=== PATIENT | female | born 1990 | race Caucasian/White ===

== ENCOUNTER 2016-07-26 08:55 | Inpatient (IN) ==
[2016-07-26] MEDS ORDERED: PEPCID PO ONE (08:58)
[2016-07-26] MEDS ORDERED: KEFZOL 1 GM/D5W 50 ML IV PRN (08:58)
[2016-07-26] MEDS ORDERED: REGLAN PO ONE (08:58)
[2016-07-26] MEDS ORDERED: BICITRA PO ONE (09:15)
[2016-07-26] MEDS ORDERED: PEPCID ONE (09:21)
[2016-07-26] MEDS ORDERED: SODIUM CHLORIDE 0.9% 10 ML ONE (09:21)
[2016-07-26] MEDS: LR 1,000 ML IV SCH ×2 (09:39→10:23)
[2016-07-26] MEDS ORDERED: BENADRYL ONE (09:43)
[2016-07-26] MEDS ORDERED: FENTANYL ONE (09:44)
[2016-07-26] MEDS ORDERED: PITOCIN ONE (09:44)
[2016-07-26] MEDS ORDERED: DURAMORPH ONE (09:45)
[2016-07-26] MEDS ORDERED: NS 250 ML ONE (09:46)
[2016-07-26] MEDS ORDERED: LR 1,000 ML ONE (09:46)
[2016-07-26] MEDS ORDERED: PITOCIN 20 UNITS/LR 1,000 ML ONE (09:46)
[2016-07-26] MEDS ORDERED: METHERGINE ONE (09:47)
[2016-07-26] MEDS ORDERED: HEMABATE ONE (09:47)
[2016-07-26 10:01] LABS: MANUAL DIFF NEEDED? NO
[2016-07-26 10:10] LABS: BASO% 0.2 % (0.0-0.8); EOS# 0.08 X1000 (0.0-0.7); EOS% 0.8 % (0.0-10.0); HEMATOCRIT 36.8 % (37.0-47.0); HEMOGLOBIN 12.9 g/dL (12.0-16.0); IMM GRAN# 0.04 X1000 (0.0-0.04); IMM GRAN% 0.4 % (0.0-0.5); LYMPH# 2.08 X1000 (1.2-3.4); LYMPH% 21.8 % (20.5-51.1); MCH 32.5 PG (27-31); MCHC 35.1 g/dL (33-37); MCV 92.7 FL (81-99); MONO# 0.83 X1000 (0.11-0.59); MONO% 8.7 % (1.7-9.3); MPV 12.8 FL (7.4-10.4); NEUT% 68.1 % (42.2-75.2); PLT 151 X1000 (130-400); RBC 3.97 XMIL (4.2-5.4)
[2016-07-26 10:31] LABS: URINE SOURCE VOIDED
[2016-07-26 10:37] LABS: BILIRUBIN URINE NEGATIVE (NEGATIVE); BLOOD URINE NEGATIVE (NEGATIVE); CLARITY SL. CLOUDY (CLEAR); COLOR YELLOW; GLUCOSE URINE NEGATIVE (NEGATIVE); LEUKOCYTES URINE 2+ (NEGATIVE); NITRITE URINE NEGATIVE (NEGATIVE); PROTEIN URINE NEGATIVE (NEGATIVE); UROBILINOGEN URINE NORMAL
--- NOTE | 2016-07-26 13:00 | HISTORY AND PHYSICAL ---
CHIEF COMPLAINT: Intrauterine . HISTORY OF PRESENT ILLNESS: This is a 26-year-old G1 with IUP at 39+ 4 weeks by first trimester ultrasound, EDC 07/29/2016 who presents for primary low transverse section secondary to breech presentation. care has been complicated by Chlamydia this , which was treated and had a negative test of cure. Otherwise care has been uncomplicated. Estimated weight at 37 weeks was 6 pounds 12 ounces with good fluid and again breech presentation. OBSTETRICAL HISTORY: G1 current. 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 Denies abnormal Pap smears. PAST MEDICAL HISTORY: Obesity. PAST SURGICAL HISTORY: Denies. MEDICATIONS: Labetalol, vitamins. ALLERGIES: No known drug allergies. SOCIAL: Denies alcohol, tobacco or illicit drug use. FAMILY HISTORY: Noncontributory. REVIEW OF SYSTEMS: Negative. PHYSICAL EXAMINATION: GENERAL: Well-developed, well-nourished, white female, in no acute distress. HEENT: Pupils equally round, react to light. Extraocular muscle intact. CHEST: Clear to auscultation bilaterally. CV: Regular rate and rhythm. No murmurs, rubs, or gallops. ABDOMEN: Soft, nontender, gravid. EXTREMITIES: No clubbing, cyanosis, or edema. SKIN: No focal lesions. NEURO: No focal deficits. ASSESSMENT AND PLAN: 1. Intrauterine at 39+ 4 weeks. 2. Breech presentation. PLAN: Is for a primary low transverse section. The patient is counseled regarding the risks and benefits of section including risks of bleeding, infection, injury to bowel and bladder. Patient states she agrees with the above stated risks and would like proceed to forward.
[2016-07-26] MEDS ORDERED: HYDROXYZINE IM PRN (13:45)
[2016-07-26] MEDS ORDERED: DEMEROL PO PRN ×2 (13:45)
[2016-07-26] MEDS ORDERED: PHENERGAN IM PRN (13:45)
[2016-07-26] MEDS ORDERED: DEMEROL IM PRN (13:45)
[2016-07-26] MEDS ORDERED: PITOCIN IM PRN (13:45)
[2016-07-26] MEDS ORDERED: CYTOTEC PO PRN (13:45)
[2016-07-26] MEDS ORDERED: PERCOCET-5 PO PRN (13:45)
[2016-07-26] MEDS ORDERED: M-M-R II VACCINE SUBQ ONE (13:45)
[2016-07-26] MEDS ORDERED: HYDROXYZINE PO PRN (13:45)
[2016-07-26] MEDS ORDERED: AMBIEN PO PRN (13:45)
[2016-07-26] MEDS ORDERED: DULCOLAX PR PRN (13:45)
[2016-07-26] MEDS ORDERED: MYLICON PO PRN (13:45)
[2016-07-26] MEDS ORDERED: PITOCIN 20 UNITS/LR 1,000 ML IV ONE (13:45)
[2016-07-26] MEDS ORDERED: BOOSTRIX VACCINE IM ONE (13:45)
[2016-07-26] MEDS ORDERED: NARCAN INJ PRN (14:02)
[2016-07-26] MEDS ORDERED: ZOFRAN IV PRN ×2 (14:02)
[2016-07-26] MEDS ORDERED: NORCO-5 PO PRN (14:02)
[2016-07-26] MEDS ORDERED: BENADRYL IV PRN (14:02)
[2016-07-26] MEDS ORDERED: ZOFRAN ODT PO PRN (14:02)
--- NOTE | 2016-07-26 14:06 | OPERATIVE NOTE ---
PROCEDURE DATE: 07/26/2016 PREOPERATIVE DIAGNOSIS: Intrauterine at 39+ 4 weeks, breech, live. POSTOPERATIVE DIAGNOSIS: Intrauterine at 39+ 4 weeks, breech, live. PROCEDURE: Primary low transverse section. SURGEON: Dr. Claudio. ANESTHESIA: Celso. FINDINGS: Normal uterus, ovaries, and bilateral fallopian tubes. Viable male . Delivery time was 12:56. Apgars 9 and 10. weight 8 pounds 7 ounces. COMPLICATIONS: None apparent. ESTIMATED BLOOD LOSS: 400 mL. SPECIMENS REMOVED: Placenta and cord blood. OPERATIVE COURSE: The patient was identified and consents reviewed. Spinal anesthesia was administered without complications. The patient is placed in a dorsal supine position with a leftward tilt. The abdomen was prepped and draped in normal sterile fashion. A Pfannenstiel skin incision was made and carried through to the underlying layer of fascia. It was extended laterally with Wilson scissors. Inferior portion performed in a similar manner. The superior aspect of the fascial incision was grasped with Luke clamps, elevated, and underlying rectus muscle dissected off with the Wilson scissors. Inferior portion performed in a similar manner. The rectus muscle identified and in the midline. The peritoneum was identified and entered bluntly. Bladder blade was inserted. Low transverse hysterotomy was made. was found to be in breech presentation. Infant delivered atraumatically. Nose and mouth were bulb suctioned. Cord was clamped and cut. was handed off to the waiting nursing staff. The placenta was then manually extracted. The uterus was exteriorized and cleaned of all clots and debris. The hysterotomy was repaired in 2 layers 1st using running locked 0 chromic and a 2nd imbricating layer using 0 chromic was used. The uterus was returned to the intraperitoneal space. The hysterotomy was then re-examined and found to be hemostatic. Peritoneum was reapproximated using 0 chromic. The fascia was then closed with 0 Vicryl in a running fashion. Subcutaneous tissues closed with plain gut suture. The skin was closed with 4-0 Biosyn as well as Dermabond. Patient tolerated the procedure well. She was taken to the recovery room afterwards in stable condition.
[2016-07-26] MEDS: TORADOL IV SCH ×2 (14:31→20:00)
[2016-07-26] MEDS ORDERED: MORPHINE IV ONE (15:26)
[2016-07-26] MEDS: MYLICON PO SCH ×2 (18:18→20:00)
[2016-07-26] MEDS: PITOCIN 10 UNITS/LR 1,000 ML IV SCH (18:25)
[2016-07-26] MEDS: PERICOLACE PO SCH (20:00)
[2016-07-27] MEDS: PITOCIN 10 UNITS/LR 1,000 ML IV SCH (02:04)
[2016-07-27] MEDS: TORADOL IV SCH ×2 (02:16→09:34)
[2016-07-27] MEDS: NORCO-10 PO PRN ×2 (07:50→12:18)
[2016-07-27] MEDS: MYLICON PO SCH ×4 (09:35→20:22)
[2016-07-27] MEDS: PRECARE PO SCH (09:35)
[2016-07-27 10:01] LABS: HEMATOCRIT 34.5 % (37.0-47.0); HEMOGLOBIN 11.6 g/dL (12.0-16.0); MCH 31.7 PG (27-31); MCHC 33.6 g/dL (33-37); MCV 94.3 FL (81-99); MPV 12.4 FL (7.4-10.4); RBC 3.66 XMIL (4.2-5.4)
[2016-07-27] MEDS ORDERED: LR 1,000 ML IV SCH (13:45)
[2016-07-27] MEDS: PERICOLACE PO SCH (20:22)
[2016-07-27] MEDS: PERCOCET-10 PO PRN (22:17)
[2016-07-28] MEDS: PERCOCET-10 PO PRN ×6 (03:50→23:21)
[2016-07-28] MEDS: PRECARE PO SCH (11:04)
[2016-07-28] MEDS: MYLICON PO SCH ×4 (11:05→20:21)
[2016-07-28] MEDS: PERICOLACE PO SCH (20:21)
[2016-07-29] MEDS: PERCOCET-10 PO PRN ×2 (05:15→09:52)
[2016-07-29 07:52] VITALS: BP 128/65
[2016-07-29] MEDS: PRECARE PO SCH (09:52)
[2016-07-29] MEDS: MYLICON PO SCH (09:52)
--- NOTE | 2016-07-30 05:32 | DISCHARGE SUMMARY ---
ADMISSION DATE: 07/26/2016 DISCHARGE DATE: 07/29/2016 ADMITTING DIAGNOSES: 1. Term . 2. Breech presentation. PRINCIPAL DIAGNOSES: 1. Term . 2. Breech presentation. PRINCIPAL PROCEDURE: Primary low-transverse . SUMMARY: Khalida Wang is a 26-year-old, who is at term gestation with a known breech presentation. After discussing the options, and indications, she was admitted to the hospital and Dr. Claudio performed a primary low transverse , delivering a 8 pound 7 ounce male in a breech presentation. There were no intraoperative complications. Postoperatively, the patient has done well. She has remained afebrile and all vital signs have been stable. Admission hemoglobin was 12.9 and hematocrit was 36.8 with discharge hemoglobin being 11.6 and hematocrit 34.5. On the day of discharge, cardiac and pulmonary examinations were normal. Bowel and bladder function was normal. Incision was clean and dry. She is having scant vaginal bleeding. Ms. Wang is being discharged today and will be seen back in the office next week. Routine discharge instructions, activity limitations, and precautions were discussed. She will continue her iron and vitamins and she is given prescriptions for Percocet 10 #30 and Motrin 800 mg, for postoperative pain.
== END 2016-07-29 13:00 | disposition home or self-care (01) | DRG 766 ==
LOC: P.LD 08:55 → P.WC 16:10
PROVIDERS: ADMIT Obstetrics & Gynecology; ATTEND Obstetrics & Gynecology
PROC: 10D00Z1 Extraction of Products of Conception, Low, Open Approach (ICD-10-PCS; principal; 2016-07-26 12:15)
DX: O32.1XX0 Maternal care for breech presentation, not applicable or unspecified (principal); E66.9 Obesity, unspecified; O69.1XX0 Labor and delivery complicated by cord around neck, with compression, not applicable or unspecified; O99.214 Obesity complicating childbirth; Z3A.39 39 weeks gestation of pregnancy; Z37.0 Single live birth; O16.4 Unspecified maternal hypertension, complicating childbirth; Z79.899 Other long term (current) drug therapy
CPT/HCPCS: 59025; 81003; 85025; 85027; 86592; 86850; 86900; 86901; J0690; J1200; J1885; J2210; J2270; J2274; J2405; J2590; J3010; J7050; J7120; S0028